=== PATIENT | male | born 1970 | race Caucasian/White ===

== ENCOUNTER 2022-05-14 12:25 | Emergency (ER) | payer OTHER, SELFPAY ==
[2022-05-14 12:29] VITALS: BP 112/71; PULSE 95; O2SAT 95
[2022-05-14 12:57] VITALS: BP 100/73; PULSE 88; RESP 19; TEMP 36.6; O2SAT 98; BMI 27.4
--- NOTE | 2022-05-14 14:47 | PC.NURSE ---
alert, speech clear , witnessed walking out of ed w steady gait
== END 2022-05-14 14:55 | disposition left against medical advice (07) ==
PROVIDERS: Emergency Provider Emergency Medicine
DX: F10.129 Alcohol abuse with intoxication, unspecified (principal); Y90.9 Presence of alcohol in blood, level not specified; Z71.41 Alcohol abuse counseling and surveillance of alcoholic
CPT/HCPCS: 99281

== ENCOUNTER 2025-06-01 19:01 | Emergency (ER) | payer OTHER, SELFPAY ==
[2025-06-01 19:10] VITALS: BP 125/71; PULSE 99; RESP 16; TEMP 36.6; O2SAT 94
[2025-06-01 19:12] VITALS: BP 119/60; PULSE 111; O2SAT 97; BMI 27.4
--- OUTSIDE RECORDS SUMMARY | 2025-06-01 19:39 | XMS_ITS | Clinical Summary ---
Author Organization [employer] Address [address] [facility] [address] [place] [address] Care Team Providers Care [employer] Engraver Hand Name Role Phone Unavailable Primary Care Provider Unavailabl e Encounters Date Type Department Care Team Description 05/24/2025 Population Health Risk Score [facility] ([facility]) Department [address] [id number] Provider, Population Health Generic from Last 3 Months Social History Tobacco Use Types Packs/Day Years Used Date Smoking Tobacco: Never Assessed Sex and Gender Information Value Date Recorded Sex Assigned at Not on file Legal Sex Male 9:21 PM EDT Gender Identity Not on file Sexual Orientation Not on file Plan of Treatment Health Maintenance Due Date Last Done Comments CT Colonography 1970 Colonoscopy 1970 Colorectal Cancer Screening 1970 Depression Screening 1970 FIT DNA/Cologuard 1970 FIT 1970 FOBT 1970 HIV Screening 1970 Lipid Panel 1970 SDOH Screening 1970 Sigmoidoscopy 1970 Disability Screening 1970 Alcohol/Substance Use Screening 1982 Tobacco Screening 1982 Hepatitis C Screening 1988 DTaP/Tdap/Td Vaccines (1 - Tdap) 1989 Hepatitis B Vaccines (1 of 3 - 19+ 3-dose series) 1989 Pneumococcal Vaccine: 50+ Ye ars (1 of 2 - PCV) 1989 Zoster Vaccines (1 of 2) 2020 COVID-19 Vaccine ( - 2023-2 5 season) 2024 Influenza Vaccine (#1) 2025 RSV Patients and Pa tients Aged 60 years or older (1 - 1-dose 75+ series) 2045 HIB Vaccines Aged Out No longer eligi ble based on patient's age to complete this topic HPV Vaccines Aged Out No longer eligi ble based on patient's age to complete this topic Hepatitis A Vaccines Aged Out No long er eligible based on patient's age to complete this topic IPV Vaccines Aged Out No longer eligi ble based on patient's age to complete this topic Meningococcal B Vaccine Aged Out No l onger eligible based on patient's age to complete this topic Meningococcal Vaccine Aged Out No alex harshal eligible based on patient's age to complete this topic RSV under 20 months Aged Out No longe r eligible based on patient's age to complete this topic Rotavirus Vaccines Aged Out No longer eligible based on patient's age to complete this topic
--- NOTE | 2025-06-01 19:57 | ED.GENADULT ---
HPI - General Adult General Chief complaint: ETOH/Substance Use Stated complaint: ETOH, asking for rehab Time Seen by Provider: 06/01/25 19:57 History of Present Illness ED Provider: Priyanka LOO narrative: The patient is a 55-year-old male who is an alcoholic. He was brought to the hospital by ambulance today stating that he wants to go to detox. Specifically he says that he has been in contact with the [facility] in [place] where he says he has been treated before. He says that a year or 2 ago he was there for 90 days. The patient says that he wants to stop drinking. He says that his mother 3 months ago and has been drinking more heavily since then. He says that he has had many family members and his in the last several years. He says that he lives in the house his mother lived in. His brother in his sister also live there. He says that they are both heroin addicts and he does not like staying at the house. He says he went for a walk today and ultimately decided to call an ambulance and come to the hospital. He says that he had called the [facility] and was told that if he could get there he would have a bed. Related Data Allergies Allergy/AdvReac Type Severity Reaction Status Date / Time No Known Allergies Allergy Verified 06/01/25 19:13 Review of Systems Review of Systems: Yes all other systems are reviewed and are negative [facility] Social History Social History Alcohol intake: current Alcohol type: beer Use of substances other than those prescribed or required for medical reasons: No Advance Directives: No Advance Directives Information Provided: No Physical Exam ED Vital Signs: Vital Signs - 24 hr 06/01/25 19:10 06/01/25 20:35 06/01/25 21:03 Temperature 97.8 F 98.1 F 98.1 F Pulse Rate 99 87 87 Respiratory Rate 16 16 16 Blood Pressure 125/71 113/62 113/62 Pulse Oximetry 94 94 94 Oxygen Delivery Method Room Air Room Air Room Air BMI result Body Mass Index 27.4 Const Other: The patient is a thin, chronically ill appearing 55-year-old man who looks older than his age. He is awake and alert. He seems intoxicated. He does not seem in acute distress. HENMT Other: Face is symmetrical, mucous membranes moist Eyes General: appearance normal, both eyes and all related structures Neck Neck: Yes full ROM and Yes no lymphadenopathy Resp Effort & Inspection: normal respiratory effort Auscultation: clear to auscultation bilaterally Cardio Rate: regular rate Rhythm: regular rhythm Heart sounds: S1 normal heart sound present and S2 normal heart sound present GI Other: Abdomen is soft and nontender Skin Other: The patient has some scattered abrasions on his arms. Otherwise the skin is dry and unremarkable. Neuro Other: The patient is awake and alert. He seems intoxicated. No hosea slurring of speech however. He seems reasonably steady on his feet. Cranial nerves 2-12 are grossly intact. He moves his extremities normally and appropriately. Extrem Other: No peripheral edema. No calf swelling or tenderness. Medical Decision Making Medical Decision Making [facility] Narrative: The patient is a 55-year-old male who was an alcoholic who presented voluntarily hoping to get into detox. Specifically he hoped to get into the [facility] in [place]. This is apparently a facility which is typically entered through a section 35. I contacted the facility. They did not feel that there was any way that they could accept him tonight through either a section 35 or any alternate policy. I suggested to the patient that he stay in the emergency department overnight to be seen by the recovery team for assistance with placement in detox tomorrow. However the patient did not wish to stay in the emergency room overnight and said that he would contact his therapist in the morning. The patient seemed reasonably steady on his feet and he was not slurring his words so I felt that he was clinically sufficiently sober for discharge and that there were no grounds to hold him against his will. I could not convinced him to stay. Discharge Plan Discharge Clinical Impression: Alcoholism Patient Disposition: Home, Self-Care Additional Instructions: Please try to minimize alcohol use. Please contact your therapist tomorrow as well. Alcohol use disorder You were seen in the Emergency Department today for treatment of alcohol use disorder.? You may have been given medications to help with your withdrawal symptoms.? Please do not drink alcohol with them. This is very dangerous and can cause respiratory depression or other adverse reactions depending on the medication. If you would like to cut down or stop your alcohol use please consider calling our outpatient Addiction Treatment office:? [facility] (M-F [id number]) [address] [place] [address] ? You have also been given a list of treatment providers in the area that can assist as well.? If you experience seizures, vomiting blood, black stools, falls, severe headache, chest pain, fevers, trouble breathing, hallucinations or any other concerns you need to call 911 or seek immediate care. Please stay hydrated. Referrals: [facility] [Provider Group] Interventions: ED Discharge Assessment Last Done: 06/01/25 21:03 Discharge Date/Time: 06/01/25 21:03 Print Language: Polish
[2025-06-01 20:35] VITALS: BP 113/62; PULSE 87; RESP 16; TEMP 36.7; O2SAT 94
--- NOTE | 2025-06-01 20:51 | MHC.EDTECH ---
Patient refused blood work
[2025-06-01 21:03] VITALS: BP 113/62; PULSE 87; RESP 16; TEMP 36.7; O2SAT 94
== END 2025-06-01 21:03 | disposition home or self-care (01) ==
PROVIDERS: Emergency Provider Emergency Medicine
DX: F10.20 Alcohol dependence, uncomplicated (principal)
CPT/HCPCS: 99284